=== PATIENT | male | born 1980 | race Caucasian/White ===

== ENCOUNTER 2017-08-10 17:37 | Inpatient (IN) | payer BC ==
[~2017-08-10] VITALS: Ht 170.2 cm; Wt 101.6 kg
--- NOTE | ~2017-08-10 | H ---
[facility] [place] [address] HISTORY AND PHYSICAL Name: MYLA HUNT JR Room #: 200-I [facility] IN M.R.#: [id number] Admission: 08/10/17 Attend Phys: Jose Gutierrez MD Discharge: 08/13/17 Date of : 84 Report #: [id number] THIS REPORT FOR: //name// CC: Darrel Del Rosario MD DATE OF SERVICE: 08/10/2017 HISTORY OF PRESENT ILLNESS: The patient is a 37-year-old male. He is transferred here from [facility]. He is approximately 2 weeks post right knee arthroscopy with chondroplasty of the trochlea and osteochondral allograft transplant of medial femoral condyle. Somewhat extensive surgery, he is nonweightbearing in a brace for 6 weeks. Approximately a week ago, he had been home and having some discomfort in the posterior knee area, particularly with any sort of extensive standing or walking. This became worse and then some shortness of breath for the last couple of days. He was in for orthopedic followup this morning and sent for an ultrasound of the leg, which showed extensive deep venous thrombosis in the right lower extremity, right femoral vein, main femoral vein and popliteal vein. Nearly occlusive clot in the distal superficial femoral artery, popliteal and PTVs. Subsequently then had a CT angiogram, which revealed bilateral central and segmental pulmonary embolism. He was admitted to [facility] in [place] and given a shot of Lovenox, which I suspect was 1 mg/kg approximately noon today. Family requested transfer to [facility] as myself and Dr. Del Rosario take care of the family members. He denies any real chest pain, shortness of breath only occurs with exertion. He is minimally short of breath, although he is still on room air and satting adequately. PAST MEDICAL HISTORY: Essentially negative except for this knee operation. LABORATORY DATA: From their hospital revealed an H and H of 16 and 46. Liver function tests were normal except total bilirubin was 1.3. Coags were normal. White count was 15.9. Sed rate was 61. Potassium 4.3, creatinine 1.4. Blood cultures had also been sent off. Hypercoag panel was not sent, it appears. SOCIAL HISTORY: He is , 3 children. Social alcohol, no tobacco. He is active. Exercises somewhat regularly. FAMILY HISTORY: Negative for premature coronary artery disease, pulmonary embolism or prior clotting history. REVIEW OF SYSTEMS: Essentially negative except for as stated above. He has been limited by the right knee issue. [address] [address] HISTORY AND PHYSICAL Name: GILBERT,JAMES M Room #: 200-I [facility] IN M.R.#: [id number] Admission: 08/10/17 Attend Phys: Jose Gutierrez MD Discharge: 08/13/17 Date of : 84 Report #: [id number] PHYSICAL EXAMINATION: GENERAL: Pleasant, alert. He does not appear to be in distress. VITAL SIGNS: Blood pressure 112/80, pulse is 90 and regular, respirations are 18-20. HEENT: Eyes reveal xanthelasmas. Pharynx is clear. NECK: Shows preserved upstrokes without JVD or bruits. LUNGS: Clear. CARDIAC: Regular rate and rhythm, S1, S2 distant. ABDOMEN: Slightly obese, nontender. EXTREMITIES: There is a brace on the right lower extremity. There is slight edema, right greater than left. There is some tender to palpation behind the right in the popliteal fossa. Distal pulses are diminished. NEUROLOGIC: Nonfocal. SKIN: Warm and dry. There is a healing incision over the right knee. ASSESSMENT: 1. Bilateral central pulmonary embolism. 2. Right lower extremity deep venous thrombosis, somewhat extensive. 3. Status post right knee operation on 07/27/2017. RECOMMENDATIONS AND PLAN: We will initiate heparin bolus and drip per protocol. We will echo Doppler in the morning to assess the right-sided chambers with the pulmonary embolism findings. O2 protocol. Comfort measures. We will try to obtain the disk from [facility] who have the reports from the lower extremity Doppler and CTA. A.m. laboratory work. This plan has been discussed in detail with the patient and his family. Thank you for asking me to assist in the care of this patient. <ELECTRONICALLY SIGNED> By: Darrel Leon MD, FACC 08/16/172045 42 09 Darrel Leon MD, FACC /nt
--- NOTE | ~2017-08-10 | D ---
[facility] [place] [address] [address] DISCHARGE SUMMARY Name: MYLA HUNT JR Room #: 200-I [facility] IN M.R.#: [id number] Admission: 08/10/17 Attend Phys: Jose Gutierrez MD Discharge: 08/13/17 Date of : 84 Report #: [id number] THIS REPORT FOR: //name// CC: Darrel Del Rosario DATE OF SERVICE: 08/13/2017 HOSPITAL COURSE: A 37-year-old male who was transferred here having extensive right lower extremity DVT with some evidence of bilateral central pulmonary emboli. Subsequently, placed on heparin for 2-1/2 days here. Dyspnea, shortness of breath is improved. Still has some symptoms involving the right lower extremity. I did repeat the Doppler here of the right lower extremity, which revealed deep venous thrombosis, nonocclusive in the superficial femoral vein, occlusive in the popliteal, posterior tibial and peroneal veins. He is up and ambulating. He has a brace on. He is 2 weeks post-knee surgery and needs to be immobilized for 6 weeks. He will be transitioned over to Xarelto 15 b.i.d. for 2 weeks with a baby aspirin and then to 20 mg a day after that. We will rescan and see him in followup in 1 month. Slow increase in his range of motion, ambulation, but he is still nonweightbearing with the brace on. The hypercoag panel was negative except for some slight elevation in the DDRVT. Not clear significance of this. He will be discharged to home on aspirin and Xarelto as I stated above. He may use periodically anti-inflammatories, NSAIDs. I do not believe he had significant amount of pain for narcotic usage. DISCHARGE DIAGNOSES: 1. Moderately extensive bilateral pulmonary emboli. 2. Right lower extremity deep venous thrombosis. 3. Status post right knee after the operation with immobilization brace. This plan has been discussed with the patient. He does elect to proceed home. Intermittently continue his activity. Continue with brace and nonweightbearing per orthopedic of the right lower extremity. Rescan with right lower extremity venous Doppler and office visit in 1 month. <ELECTRONICALLY SIGNED> By: Darrel Leon MD, FACC 08/16/17 2046 0914 1754 Darrel Leon MD, FACC /nt
--- NOTE | ~2017-08-10 | 2DMMODE ---
[facility] [address] [place] [address] 2 D/M-MODE ECHOCARDIOGRAM Name: MYLA HUNT Room #: 200-I ADM IN .R.#: [id number] Admission: 08/10/17 Attend Phys: Darrel Leon, Discharge: Date of : 84 Date of Service: 08/11/17 0921 Report #: [id number] THIS REPORT FOR: //name// APPROVED REPORT Study performed: 08/11/2017 07:59:42 EXAM: Comprehensive 2D, Doppler, and color-flow Echocardiogram Patient Location: Bedside Room #: 200 Status: routine BSA: 2.15 HR: 75 bpm BP: 116/82 mmHg Other Information Study Quality: Adequate Indications Pulmonary Embolism 2D Dimensions RVDd: 29.86 mm LVEF(%): 70.53 (>50%) IVSd: 10.53 (7-11mm) LVOT Diam: 22.40 (18-24mm) LVDd: 46.55 mm PWd: 10.53 (7-11mm) Ascending Ao: 26.31 (22-36mm) LVDs: 27.98 (25-40mm) Aortic Root: 32.25 mm IVC: 7.00 mm Ramírez's LVEF: 70.53 % Volumes Left Atrial Volume (Systole) Single Plane 4CH: 38.26 mL Single Plane 2CH: 32.50 mL LA ESV Index: 19.00 mL/m2 Aortic Valve AoV Peak Rafael.: 1.12 m/s AO Peak Gr.: 5.00 mmHg LVOT Max P.13 mmHg LVOT Max V: 1.02 m/s PATEL Vmax: 3.58 cm2 Mitral Valve E/A Ratio: 1.5 MV Decel. Time: 184.75 ms MV E Max Rafael.: 0.75 m/s [facility] [place] [address] 2 D/M-MODE ECHOCARDIOGRAM Name: MYLA HUNT Room #: 200-I [facility] IN ..#: [id number] Admission: 08/10/17 Attend Phys: Darrel Leon, Discharge: Date of : 84 Date of Service: 08/11/17 0921 Report #: [id number] MV A Rafael.: 0.49 m/s MV PHT: 53.58 ms IVRT: 69.20 ms Pulmonary Valve PV Peak Rafael.: 1.29 m/s PV Peak Gr.: 6.69 mmHg Pulmonary Vein P Vein S: 0.29 m/s P Vein A: 0.23 m/s P Vein D: 0.47 m/s P Vein A Dur.: 115.3 msec P Vein S/D Ratio: 0.62 Tricuspid Valve RAP Estimate: 5.00 mmHg Left Ventricle The left ventricle is normal size. There is normal LV segmental wall motion. There is normal left ventricular wall thickness. The left ventricular systolic function is normal. The left ventricular ejection fraction is within the normal range. LVEF is 60%. The left ventricular diastolic function is normal. Right Ventricle The right ventricle is normal size. The right ventricular systolic function is normal. Atria The left atrium size is normal. The right atrium size is normal. Aortic Valve The aortic valve is normal in structure. No aortic regurgitation is present. There is no aortic valvular stenosis. Mitral Valve The mitral valve is normal in structure. There is no mitral valve regurgitation noted. No evidence of mitral valve stenosis. Tricuspid Valve The tricuspid valve is normal in structure. There is no tricuspid valve regurgitation noted. Unable to assess PA pressure. Pulmonic Valve The pulmonary valve is normal in structure. Trace pulmonic regurgitation. [address] [address] 2 D/M-MODE ECHOCARDIOGRAM Name: MYLA HUNT Room #: 200-I [facility] IN [facility]#: [id number] Admission: 08/10/17 Attend Phys: Darrel Leon, Discharge: Date of : 84 Date of Service: 08/11/17 0921 Report #: [id number] Great Vessels The aortic root is normal in size. The ascending aorta is normal in size. IVC is normal in size and collapses >50% with inspiration. Pericardium There is no pericardial effusion. <Conclusion> 1. Normal echocardiogram with Doppler. EF 60% 2. Pulmonary artery pressure could not be ascertained 3. No pericardial effusion <ELECTRONICALLY SIGNED> By: Jake Montano MD, FACC 08/11/17920 0 0 Jake Montano MD, FACC /INF
--- NOTE | ~2017-08-10 | EKG ---
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 08/11/17 0835 2123 22 Jake Montano MD, FACC /EPI
[~2017-08-10 17:37] MED LIST: NOHOMEMEDICATIONS
[2017-08-10 18:22] VITALS: BP 113/80
[2017-08-10 20:42] VITALS: BP 139/87
[2017-08-10 21:18] LABS: INR 1.1; PROTIME 10.8 Seconds (9.3-11.4)
[2017-08-10 23:55] VITALS: BP 115/80
[2017-08-11 00:17] LABS: HEMATOCRIT 41.6 % (42.0-52.0); HEMOGLOBIN 14.2 gm/dL (14.0-18.0); MCH 30.8 pg (26.0-34.0); MCHC 34.1 g/dL (28.0-37.0); MCV 90.3 fL (80.0-100.0); RBC 4.61 mil/uL (4.50-6.00); RDW 12.4 % (10.5-14.5); WBC 12.1 thou/uL (4.0-11.0)
[2017-08-11 00:27] LABS: CALCIUM 8.2 mg/dL (8.5-10.1); CREATININE 1.2 mg/dL (0.7-1.3); POTASSIUM 3.6 mmol/L (3.5-5.1)
[2017-08-11 05:21] VITALS: BP 116/82
[2017-08-11 09:34] VITALS: BP 123/71
[2017-08-11 12:06] VITALS: BP 113/75
[2017-08-11 14:14] VITALS: BP 106/45
[2017-08-11 15:26] VITALS: BP 130/88
[2017-08-11 20:59] VITALS: BP 106/75
[2017-08-12 04:24] VITALS: BP 115/62
[2017-08-12 08:00] VITALS: BP 127/77
[2017-08-12] MEDS ORDERED: XARELTO15 MG PO (10:10)
[2017-08-12 12:30] VITALS: BP 128/87
[2017-08-12 19:53] VITALS: BP 127/77
[2017-08-13 04:03] LABS: HEMATOCRIT 38.2 % (42.0-52.0); HEMOGLOBIN 12.9 gm/dL (14.0-18.0); MCH 30.7 pg (26.0-34.0); MCHC 33.8 g/dL (28.0-37.0); MCV 90.8 fL (80.0-100.0); RBC 4.2 mil/uL (4.50-6.00); WBC 8.3 thou/uL (4.0-11.0)
[2017-08-13 04:11] VITALS: BP 115/69
[2017-08-13 04:15] LABS: CALCIUM 8.3 mg/dL (8.5-10.1); CREATININE 1.2 mg/dL (0.7-1.3); POTASSIUM 3.6 mmol/L (3.5-5.1)
[2017-08-13 10:16] VITALS: BP 115/69
[2017-08-13 13:04] VITALS: BP 115/69
== END 2017-08-13 11:00 | disposition home or self-care (01) | DRG 299 ==
LOC: 2N 17:37
PROVIDERS: Internal Medicine Cardiovascular Disease; Nurse Practitioner Adult Health
DX: I82.431 Acute embolism and thrombosis of right popliteal vein (principal); I26.99 Other pulmonary embolism without acute cor pulmonale; I82.441 Acute embolism and thrombosis of right tibial vein; I82.411 Acute embolism and thrombosis of right femoral vein; Z28.21 Immunization not carried out because of patient refusal
CPT/HCPCS: 10081

== ENCOUNTER → 2018-10-10 | Outpatient (CLI) | payer OTHER ==
[~2018-10-10] MED LIST changes: +XARELTO15 MG PO
== END ==
LOC: CAT 09:57
DX: Z13.6 Encounter for screening for cardiovascular disorders (principal); E78.00 Pure hypercholesterolemia, unspecified; I25.10 Atherosclerotic heart disease of native coronary artery without angina pectoris

== ENCOUNTER 2020-09-06 13:22 | Emergency (ER) | payer BC, OTHER ==
[~2020-09-06] VITALS: Ht 170.2 cm; Wt 103.9 kg
[2020-09-06] MEDS ORDERED: ASA81BEC PO (13:46)
[2020-09-06 15:41] VITALS: BP 116/75
== END 2020-09-06 15:41 | disposition home or self-care (01) ==
LOC: ER 13:22
DX: M79.661 Pain in right lower leg (principal); Z79.82 Long term (current) use of aspirin; Z88.0 Allergy status to penicillin